=== PATIENT | male | born 1970 | race Caucasian/White ===

== ENCOUNTER 2023-12-30 15:55 | Emergency (ER) | payer OTHER, SELFPAY ==
[2023-12-30 16:02] VITALS: BP 147/87; PULSE 91; TEMP 36.7; O2SAT 98; BMI 43.8
--- NOTE | 2023-12-30 16:20 | ED.GENADUL1 ---
HPI HPI - General Adult General Chief complaint: Wound/Laceration Stated complaint: UPPER EXTREMITY INJURY-CUT FINGER Time Seen by Provider: 12/30/23 15:57 Source: patient Mode of arrival: walk-in Limitations: no limitations History of Present Illness HPI narrative: Patient is a 53-year-old male who presents to the emergency department for small laceration to the lateral aspect of the left fifth finger. He was using a kitchen knife when he accidentally cut himself. Tetanus is up-to-date and bleeding is well-controlled. He is right-hand dominant. No other associated injuries Related Data Allergies Allergy/AdvReac Type Severity Reaction Status Date / Time phenothrin Allergy Intermediate Verified 12/30/23 16:05 Opioid HPI Opioid Management Most Recent Opioid Data: No Data to Display Review of Systems ROS Constitutional Denies: fever or chills Ears, nose, mouth, and throat Denies: throat pain or nasal congestion Respiratory Denies: shortness of breath Gastrointestinal Denies: nausea or vomiting Musculoskeletal Reports: extremity pain; Denies: back pain or neck pain Integumentary/Breast Denies: rash Neurological Denies: headache Hematologic/Lymphatic Denies: easy bruising or easy bleeding Exam Narrative Exam Narrative: Gen.: Awake, alert, in no distress Head: Normocephalic, atraumatic ENT: Moist mucous membranes Respiratory: No respiratory distress Extremities: Normal flexion and extension of the DIP and PIP joints of the left fifth finger. Middle phalanx with a 1.5 cm laceration over the ulnar aspect of the digit. No active bleeding. No deep laceration or subcutaneous tissue exposure.No evidence of tendon deficit on exam Psych: Normal mood and affect Neuro: No focal neuro deficit Skin: Warm, dry Constitutional Vital Signs, click to edit/add: Last Vital Signs Temp 98.0 F 12/30/23 16:02 Pulse 91 H 12/30/23 16:02 Resp 18 12/30/23 16:02 BP 147/87 H 12/30/23 16:02 Pulse Ox 98 12/30/23 16:02 O2 Del Method Room Air 12/30/23 16:02 Course Vital Signs Vital signs: Vital Signs Temperature 98.0 F 12/30/23 16:02 Pulse Rate 91 H 12/30/23 16:02 Respiratory Rate 18 12/30/23 16:02 Blood Pressure 147/87 H 12/30/23 16:02 Pulse Oximetry 98 12/30/23 16:02 Oxygen Delivery Method Room Air 12/30/23 16:02 Temperature 98.0 F 12/30/23 16:02 Pulse Rate 91 H 12/30/23 16:02 Respiratory Rate 18 12/30/23 16:02 Blood Pressure 147/87 H 12/30/23 16:02 Pulse Oximetry 98 12/30/23 16:02 Oxygen Delivery Method Room Air 12/30/23 16:02 Medical Decision Making MDM Narrative Medical decision making narrative: Laceration repaired without difficulty. Please see procedure note for details. Follow-up with PCP in 7 to 10 days for suture removal and return to the ER if symptoms change or worsen Laceration repair: Done under sterile conditions. The use of Shur-Clens prep the area. Local injection with lidocaine 1% was used, approximately 2 cc. The wound was irrigated copiously with normal saline. The wound was explored there was no evidence of foreign material. The laceration was approximated with 3-0 nylon. 3 simple interrupted sutures were placed. Patient tolerated the procedure well. The patient was neurovascularly intact post. the patient had bacitracin applied to the laceration and a dry sterile dressing was place. The patient will need to follow-up in the next 7-10 days for removal SUPERVISED APC VISIT, PHYSICIAN ATTESTATION: Based on the medical record the care appears appropriate. ? Medical Records Medical records reviewed: Yes I reviewed the patient's medical records Discharge Plan Discharge Stand Alone Forms: Portal Instructions Chief Complaint: Wound/Laceration Clinical Impression: Finger laceration Patient Disposition: Home, Self-Care Time of Disposition Decision: 16:20 Condition: Good Print Language: [place] Instructions: Finger Laceration (ED) Additional Instructions: Sutures removed in 7-10 days with your doctor's office Referrals: Physician,Non-Staff, MD [Primary Care Provider] - 1 week
[2023-12-30] MEDS: BACITRACIN 0.9 GM PACKET 1 PACKET TOPICAL (16:43)
[2023-12-30] MEDS: LIDOCAINE HCL 1% 100 MG/10 ML MDV INJ (16:44)
== END 2023-12-30 16:39 | disposition home or self-care (01) ==
PROVIDERS: Emergency Provider Student in an Organized Health Care Education/Training Program; PCP Family Medicine
DX: S61.217A Laceration without foreign body of left little finger without damage to nail, initial encounter (principal); W26.0XXA Contact with knife, initial encounter
CPT/HCPCS: 12001; 99282

== ENCOUNTER 2024-09-02 13:04 | Outpatient (OUT) | payer OTHER, SELFPAY ==
--- NOTE | 2024-09-02 14:27 | P.CN_ITS ---
Consult Note: HPI Data of Consult Patient: new to practice Consult date: 09/02/24 Requesting Physician: Trupti Ponce MD Primary Care Provider: Amna Cobian DO Family Provider: ENOC Consult Narrative Reason for consult: neck pain, bilateral shoulder and arm pain Narrative: 54yom who presents for evaluation. notes longstanding neck and bilateral shoulder and upper extremity pain. shoulder xr with degeneration bilaterally, cervical xr with multilevel degenerative changes. has continued in frequent chiropractic therapy for >6 weeks, without lasting benefit. uses otc pain meds, as needed. cc:: CC: Trupti Ponce MD Review of Systems ROS Status of ROS 10 or more systems reviewed and unremark able except as noted in history and below Meds Home Medications and Allergies Allergies Allergy/AdvReac Type Severity Reaction Status Date / Time phenothrin Allergy Intermediate Verified 12/30/23 16:05 Exam Narrative Exam Narrative: Psych-alert and oriented x 3.? Attentive and appropriate, constitutionally normal, displays normal mood and affect per situation.? There are no obvious deficits in memory, reasoning, or intellect.? Skin-no obvious rashes, bruising, or erythema noted to the patient's area of pain.? Extremities-upper extremities are warm with minimal edema and palpable pulses. Cervical- tenderness to palpation noted in the cervical spine and paraspinal musculature.? Pain is elicited with flexion, extension, and lateral rotation of the cervical spine.? Range of motion is diminished due to pain. Facet loading maneuvers are positive. Strength-unremarkable and within normal limits Sensory-no notable sensory deficits in the bilateral upper extremities to touch or pinprick with the exception to decreased sensation to the bilateral C4, 5, 6 dermatomal distribution.? Coordination remains intact.? Gait remains non-antalgic. Assessment and Plan Assessment and Plan (1) Cervical stenosis of spine: (2) Osteoarthritis of shoulders, bilateral: Qualifiers: Osteoarthritis type: primary Qualified Code(s): M19.011 - Primary osteoarthritis, right shoulder; M19.012 - Primary osteoarthritis, left shoulder Plan 54yom who presents for evaluation. failed conservative measures, as noted. imaging reviewed, as noted. given symptoms and imaging, would like to get cervical mri without contrast, as well as updated bilateral shoulder xr. he is in agreement. meds reviewed, uds obtained. trial t#3 bid prn. follow up after imaging.
== END 2024-09-02 13:05 | disposition home or self-care (01) ==
PROVIDERS: PCP Family Medicine; Visit Provider Anesthesiology
DX: M48.02 Spinal stenosis, cervical region (principal); M19.011 Primary osteoarthritis, right shoulder; M19.012 Primary osteoarthritis, left shoulder
CPT/HCPCS: G0463

== ENCOUNTER 2024-09-04 15:50 | Outpatient (OUT) | payer OTHER, SELFPAY ==
--- NOTE | 2024-09-04 | XR_ITS ---
The [address] [address] Patient Name: JOSÉ MIGUEL KAERS MRN: [id number] date: 1970 Sex: M Assigned Patient Location: [facility] Current Patient Location: MRI Accession/Order Number: [id number] Exam Date: 09/05/2024 11:27 Report Date: 09/05/2024 11:28 At the request of: NANCY LUA MD Procedure: XR shoulder JUDIE min 2V Bilateral shoulder series 3 views each Reason for exam: Bilateral shoulder pain. COMPARISON: None. FINDINGS: Right shoulder demonstrates mild degenerative changes of the AC and glenohumeral joints without acute bony process. A similar process is noted involving the left shoulder without acute bony process. XR/XR shoulder JUDIE min 2V IMPRESSION: Mild degenerative changes of the shoulders without acute bony process. Impression dictated by: Gordon Salgado Jr., D.O.09/05/2024 11:28 AM Dictation Location: [employer] Electronically authenticated by: [id number] Y Date: 09/05/2024 11:28
== END 2024-09-04 15:51 | disposition home or self-care (01) ==
LOC: RAD 15:50
PROVIDERS: PCP Family Medicine; Visit Provider Anesthesiology
DX: M25.511 Pain in right shoulder (principal); M25.512 Pain in left shoulder
CPT/HCPCS: 73030

== ENCOUNTER 2024-09-17 15:41 | Outpatient (OUT) | payer OTHER, SELFPAY ==
--- NOTE | 2024-09-17 15:45 | MR_ITS ---
[address] [address] Patient Name: JOSÉ MIGUEL AKERS MRN: [id number] date: 1970 Sex: M Assigned Patient Location: MRI Current Patient Location: MRI Accession/Order Number: [id number] Exam Date: 09/17/2024 22:29 Report Date: 09/17/2024 22:38 At the request of: NANCY LUA MD Procedure: MR cervical spine wo con EXAMINATION: MRI C-SPINE WITHOUT IV CONTRAST CLINICAL HISTORY: Cervical pain radiating into left arm. COMPARISON: None TECHNIQUE: Multiecho imaging was performed in the sagittal and axial planes without contrast administration. FINDINGS: Vertebral body heights appear maintained. No bone marrow edema is present. No prevertebral soft tissue swelling. Cervical medullary junction appears normal. No abnormal cord signal is seen. No paraspinal mass. At C2-3: Disc osteophyte complex eccentric towards the left causing mild canal stenosis and left-sided neural foraminal stenosis. At C3-4: Disc osteophyte complex is present eccentric towards the right causing mild canal stenosis. No significant neural foraminal stenosis. At C4-5: Central disc osteophyte complex present causing moderate canal and severe left-sided neural foraminal stenosis. At C5-6: Central disc osteophyte complex present causing moderate canal and severe bilateral neural foraminal stenosis. At C6-7: Disc osteophyte complex present causing mild canal and right-sided neural foraminal stenosis. At C7-T1: No posterior disc pathology. No neural canal or foraminal stenosis. MR/MR cervical spine wo con IMPRESSION: Multilevel degenerative disc disease as described above, worst at C5-6 causing moderate canal and severe bilateral neural foraminal stenosis. Impression dictated by: Gordon Salgado Jr., D.O.09/17/2024 10:38 PM Dictation Location: [place] [address] Electronically authenticated by: [id number] Y Date: 09/17/2024 22:38
== END 2024-09-17 15:42 | disposition home or self-care (01) ==
LOC: MRI 15:41
PROVIDERS: PCP Family Medicine; Visit Provider Anesthesiology
DX: M48.02 Spinal stenosis, cervical region (principal); M50.30 Other cervical disc degeneration, unspecified cervical region
CPT/HCPCS: 72141

== ENCOUNTER 2025-06-28 09:38 | Outpatient (OUT) | payer OTHER, SELFPAY ==
--- OUTSIDE RECORDS SUMMARY | 2025-06-23 10:36 | XMS_ITS | Continuity of Care Document ---
Author Organization [facility] Address [address] [place] [address] Phone Care Team Providers Care Tar Man Name Role Phone Amna Cobian DO Primary Care Provider Amna Cobian DO Attending Provider [phone] Care Teams Patient Care Team Team Status: Active Member Role/Relationship Status Dates Amna Cobian DO Primary Care Provider Active Visit Care Team Team Status: Inactive Member Role/Relationship Status Dates Amna Cobian DO Primary Care Provider Active Start: March 27, 2025 End: March 27, 2025Amna Cobian DOAttending ProviderActiveStart: March 27, 2025 End: March 27, 2025 Visit Care Team Team Status: Inactive Member Role/Relationship Status Dates Amna Cobian DO Primary Care Provider Active Start: April 28, 2025 End: April 28, 2025Amna Cobian DOAttending ProviderActiveStart: April 28, 2025 End: April 28, 2025 Visit Care Team Team Status: Inactive Member Role/Relationship Status Dates Amna Cobian DO Primary Care Provider Active Start: June 02, 2025 End: June 02, 2025Amna Cobian DOAttending ProviderActiveStart: June 02, 2025 End: June 02, 2025 Visit Care Team Team Status: Inactive Member Role/Relationship Status Dates Amna Cobian DO Primary Care Provider Active Start: June 02, 2025 End: June 02, 2025Amna Cobian DOAttending ProviderActiveStart: June 02, 2025 End: June 02, 2025 Patient Care Team Team Status: Inactive Member Role/Relationship Status Dates Amna Cobian DO Primary Care Provider Active Start: June 23, 2025 End: June 23, 2025Amna Cobian DOAttending ProviderActiveStart: June 23, 2025 End: June 23, 2025 Chief Complaint and Reason for Visit Chief Complaint Admit Date 1 month follow up March 27, 2025 2:59pm 1 month follow up April 28, 2025 2 :46pm leg swelling June 02, 2025 3:03pm r60.0 m79.661 m79.662 June 02 4:17pm 3 WK F/U LE edema , BP June 23 2:42pm Reason for Visit Admit Date Major depressive disorder with current a ctive episode March 27, 2025 2:59pm Major depressive disorder with current a ctive episode April 28, 2025 2:46pm Bilateral lower extremity edema June 02, 2025 3:03pm Bilateral lower extremity edema June 23, 2025 2:42pm Allergies, Adverse Reactions, Alerts Allergen Type Severity Reaction Last Updated Verified Status phenylephrine Allergy Unknown swollen prostate Decem 2024 2:58pm Yes Active Social History Smoking Status Status Start Date End Date Date of Observa tion Ex-smoker (finding) October 10, 2024 4:32pm Observation Status Observation Response Date of Response Legal Sex Male (finding) Sex Assigned At BirthMaleDecember 1969 Family History Relationship Condition Age at Onset Recorded Date/T venkatesh aunt Obesity Unknown fatherHeart diseaseUnknownDeceasedUnknownMalignant neoplasmUnknowngrandparent DeceasedUnknownObesityUnknownDiabetes mellitusUnknowngrandparentFamily history of mental disorderUnknownDeceasedUnknowngrandparentObesityUnknownmotherDeceased UnknownMalignant neoplasmUnknownmotherMalignant neoplasmUnknown Problems Active Problems Problem Diagnosis/Recorded Date Onset Date Stat BPH (benign prostatic hyperplasia) September 19, 2023 6:4 6pm Unknown Active Bilateral lower extremity edema June 02, 2025 3: 48pm Unknown Active Insomnia September 19, 2023 6:46pm Unknown Activ e Generalized anxiety disorder September 19, 2023 6:46pm Un known Active Osteoarthritis of shoulders, bilateral January 03, 2024 1:13pm Unknown Active Cervical spinal stenosis October 10, 2024 3:32pm Unkno wn Active Erectile dysfunction February 07, 2024 2:34pm Unknown Active Arthritis of left acromiocla vicular joint December 04, 2023 10:03am Unknown Active Mixed hyperlipidemia February 06, 2024 2:55pm Unknown Active Well adult exam October 10, 2024 2:53pm Unknown A ctive Major depressive disorder wi th current active episode March 27, 2025 2:32pm Unknown Active BMI 40.0-44.9, adult September 19, 2023 6:46pm Unknown Active Prediabetes December 06, 2023 2:44pm Unknown Active Lumbar back pain November 11, 2022 3:36pm Unknown Active Bilateral knee pain December 04, 2023 10:03am Unknown Active Neck pain January 03, 2024 12:55pm Unknown Acti ve Severe obesity (BMI >= 40) December 04, 2023 9:58am Unkno wn Active Abdominal pain November 02, 2022 5:27pm Unknown Ac tive Hypertension November 11, 2022 3:36pm Unknown Acti ve Bursitis of shoulder, left December 04, 2023 10:11am Unkn own Active Abdominal wall strain November 02, 2022 5:27pm Unknown Active Chronic depression September 19, 2023 6:46pm Unknown Active Inactive/Resolved Problems Problem Diagnosis/Recorded Date Onset Date Stat us Difficulty urinating June 05, 2023 11:04am Unkno wn Resolved Medications Medication Status Dose Units Route Directions Qty Days Refills S tart Date Stop Date End Date Reason(s) Instructions Adherence Meloxicam 15 mg tablet Discontinued 0 .ROUTE.JKUUFCY586Uwoqr 2023 6:55amMay 2023 3:10pmTAKE 1 TABLET BY MOUTH ONCE DAILYLosartan 50 mg hkakriRxskfcuuwutf20BOWWCzury50620Gbb 2023 11:00pmDecember 2023 10:25amHypertension Essential (primary) hypertensionSemaglutide (Ozempic) 2 mg/dose (8 mg/3 mL) pen kgkjxxbfDgiwyakuzniz3EPBHYHKYlrpia vyyy2872Hlfqne 2023 8:48amSeptember 2023 4:01pmPrediabetes PrediabetesHe will take 36 clicks for 3 weeks and if no significant side effects he will go to the 2 mg dose.Amlodipine 10 mg tabletDiscontinued0.ROUTE.NOERQYM03 2023 6:36amDecember 2023 1:41pmHypertension Essential (primary) hypertensionTAKE 1 TABLET BY MOUTH ONCE DAILYSertraline 100 mg cieiqlQrqnccfkkqha217FFYKFjlexXipowbr 23rd, 2024 11:00pmNovember 2023 4:07pmSemaglutide (Ozempic) 2 mg/dose (8 mg/3 mL) pen hzbyokkuYapskaikkmrd6WL SUBCUTevery 2023 10:37amDecember 2023 3:42pm Prediabetes PrediabetesSertraline 100 mg ptrhjhEtuhrhyiejea152WRVJCnhyx4944Psdtoojy 26th, 2024 4:07pmFebruary 2024 8:49amChronic depression Depression, unspecifiedLosartan 50 mg nlkuyeXxmafoenkkdn80RWFWLdqzf42493Zloyuvsb 2023 10:25amOctober 2024 12:12pmHypertension Essential (primary) hypertensionCelecoxib 200 mg mnzegxyRwamrlqvhtxx034IZVKWyeob dfecm857760Iyzhiveo 23rd, 2024 1:41pmJuly 2024 12:05pmOsteoarthritis of both shoulders Primary osteoarthritis, right shoulder Primary osteoarthritis, left shoulderAmlodipine 10 mg tabletDiscontinued0.ROUTE .BDRWFCN120XbmgwaylJuly 08, 2024 1:41pmJuly 2024 9:03amHypertension Essential (primary) hypertensionTAKE 1 TABLET BY MOUTH ONCE DAILYSemaglutide (Ozempic) 2 mg/dose (8 mg/3 mL) pen yewbrfxpEqzdnlxzvnip1HMGAAGXYivwqo hyja0547 July 18, 2024 3:54pmJanuary 2024 7:33amPrediabetes PrediabetesTamsulosin 0.4 mg capsuleDiscontinued0.ROUTE.CYZLWKJ920Edwhzxg 27th, 2025 3:44pmFebruary 2024 1:44pmTAKE 1 CAPSULE BY MOUTH ONCE DAILY 30 MINUTES AFTER THE same meal each DAYSemaglutide (Ozempic) 2 mg/dose (8 mg/3 mL) pen aawriwdrWihqouqlwnjm5MTOXECRVzihfi cqgy5858AuxjpkjAugust 13, 2024 7:33amMarch 2024 2:36pmPrediabetes PrediabetesTamsulosin 0.4 mg capsuleActive0.ROUTE.NMKOCMT117Ynidqtxk2024 1:44pmTAKE 1 CAPSULE BY MOUTH ONCE DAILY 30 MINUTES AFTER THE same meal each DAY Complies with drug therapyAtorvastatin 20 mg tabletActive0.ROUTE.TCFIWCK759 August 30, 2024 8:23amTAKE 1 TABLET BY MOUTH ONCE DAILYComplies with drug therapySertraline 100 mg prvqwzUfqhlztxjild668DWXTQrvgt2166Psohatki 2024 8:49amAugust 2024 1:00pmChronic depression Depression, unspecifiedTrazodone 150 mg tabletActive0.ROUTE.PNQHCUJ147Ielau 2024 10:27amTAKE 1 TABLET BY MOUTH AT BEDTIMEComplies with drug therapy Cariprazine (Vraylar) 1.5 mg capsuleDiscontinued1.2KRIJBwvii463Fpoi 2024 11:00pmJuly 2024 2:33pmChronic depression Depression, unspecifiedAripiprazole 5 mg dzbpawMnsztskoetal7ZQYQFprqs at bedtime 301July 2024 11:00pmAugust 2024 2:27pmChronic depression Depression, unspecifiedAmlodipine 10 mg tabletDiscontinued0.ROUTE.WGFFOQS511Urfs2024 9:03amNovember 2024 4:01pmHypertension Essential (primary) hypertensionTAKE 1 TABLET BY MOUTH ONCE DAILYCelecoxib 200 mg vjkdrzmUzfxwt131ZHJBEhwdt pwglj807599Dwvi 2024 12:05pmOsteoarthritis of both shoulders Primary osteoarthritis, right shoulder Primary osteoarthritis, left shoulderComplies with drug therapySertraline 100 mg tabletActive0.ROUTE.SURAHXM4077Vbejcg2024 1:00pmChronic depression Depression, unspecifiedTAKE 2 TABLETS BY MOUTH ONCE DAILYComplies with drug therapyLosartan-Hydrochlorothiazide 50-12.5 mg xyuqgdQjtsnk8XMXBZHadmi615Chuchdj 2024 11:00pmHypertension Essential (primary) hypertensionComplies with drug therapyCyclobenzaprine 10 mg dueywsWvqlqjuessqi93GWMENhukr times daily as needed for Muscle Aiigh290Vocsr 2022 11:00pmMarch 2023 2:31pmIbuprofen 800 mg ctuakzRzriuxmpotjx220 MGPOThree times daily as needed for Rqwp139Fqzks 2022 11:00pmApril 2023 2:52pmTamsulosin (Flomax) 0.4 mg capsuleDiscontinued0.7ZZNCWldhl723Yzogjbtx 2022 12:00amJanuary 2024 3:44pmNaproxen (Naprosyn) 500 mg tablet Ashdgisbglex555FIDAIhonj kqnmt766Kshgh 2022 11:00pmApril 2023 2:54pm Prednisone 20 mg awdxilMtobhrspqmby11YAONLsfyi911Yabtj 2022 11:00pmMarch 2023 2:32pmadminister with food or milkTrazodone 150 mg tabletDiscontinued 150MGPODaily at bedtimeMay 2023 11:00pmMarch 2024 10:27amAtorvastatin 20 mg snplalMwmnztdcaaji21XOWNFtlmdOtz 2023 11:00pmFebruary 2024 8:24amSemaglutide (Ozempic) 0.25 mg or 0.5 mg (2 mg/3 mL) pen injector Discontinued0.25MGSUBCUTevery ywiw4172Fxt 2023 11:00pmJuly 2023 2:58pm0.25 mg once weekly for 4 weeks followed by 0.5 mg once weekly for 4 weeks Semaglutide (Ozempic) 2 mg/dose (8 mg/3 mL) pen rkrgtqigKlluzllsavhf9NTCQNSHQ every nirr4924Ucpx 2023 11:00pmAugust 2023 8:48amPrediabetes PrediabetesHe will take 36 clicks for 3 weeks and if no significant side effects he will go to the 2 mg dose.Semaglutide (Ozempic) 2 mg/dose (8 mg/3 mL) pen anzvrxvfRlbapzxnjlzi0PARVBUCGhnlqc rzxl5689Fwzqwbbl 2023 3:41pmJanuary 2024 3:54pmPrediabetes PrediabetesAmlodipine 5 mg bwubzbDhhhzafnzbtc5PKBHCniyuJnlufbue 2024 12:00amDecember 2024 3:23pmFurosemide 20 mg pxrqkyOdwtlq39GNLDPjoum as needed for zasyz877Hgjbybyn 2024 12:00amEdema of both lower extremities Localized edemaComplies with drug therapyIbuprofen 200 mg evmsfuAjiczspjomjl862 MGPODailyApril 2023 11:00pmMay 2023 3:10pmQuetiapine (Seroquel Xr) 50 mg tablet extended release 24 ynUysmhoviumvi96GVKMLsvza at bumsdxc227Wtdnv 2023 11:00pmSeptember 2023 6:48amInsomnia Insomnia, unspecifiedAmlodipine 10 mg dgubaiAcyrcwopzbzm12NDBIBimkj585Gnxyv 2023 11:00pmOctober 2023 6:36amHypertension Essential (primary) hypertensionLosartan 100 mg mtczajSuisldgkpagq723JIQEUumsp24 arch 2023 11:00pmApril 2023 3:17pmHypertension Essential (primary) hypertensionBupropion Hcl 150 mg tablet extended release 24 aoTydedqdfrhbb308DJKZWcoxi opizd0951Fferk 2023 3:36pmApril 2023 2:52pmBody mass index (BMI) of 40.0 to 44.9 in adult Body mass index [BMI] 40.0-44.9, adultBupropion Hcl 150 mg tablet extended release 24 jbZeedombeirqq015RBAHGijlqMrntm 2023 12:00amMarch 2023 3:39pmTrazodone 150 mg ezakzxOqfsyqggntoc577AZAMWqtps at bedtimeReg[facility] 2023 12:00amApril 2023 3:16pmSertraline 100 mg jfyssjYfkwbdcwfhri214PHRRKgwhc September 19, 2023 12:00amOctober 2023 7:35amNaltrexone 50 mg tablet Vxaptowryruk52NODVTawgxVkmso 2023 12:00amMarch 2023 8:45amMeloxicam 15 mg stueauKvxxsjxkviup51GJRBOrrfyHvuwb 2023 12:00amApril 2023 6:55am Losartan 50 mg njstatJvdxiocnjijg99PFSTKvkdiRtfaz 2023 12:00amMarch 2023 3:36pmAmitriptyline 25 mg pdthngBmdxgrrxctnh02GUHFSbnyu at bedtimeRegional Medical Center 2023 12:00amApril 2023 3:16pmNaltrexone 50 mg sqfxiwTjxngryhtoxt96NW SQYcpwr385Ooctg 2023 8:44amApril 2023 2:54pmBody mass index (BMI) of 40.0 to 44.9 in adult Body mass index [BMI] 40.0-44.9, adultCelecoxib 200 mg ttllascUlkgxfhweskl907PA POTwice lzzsz818969Aarfctzog 18th, 2024 7:05amDecember 2023 1:41pm Osteoarthritis of both shoulders Primary osteoarthritis, right shoulder Primary osteoarthritis, left shoulderCelecoxib 200 mg uerssloHwsaffeuzteh381GXGH Twice qpkxr64948YkvDecember 03, 2023 11:00pmpt2023 7:06am Methylprednisolone (Medrol (Nabil)) 4 mg tablets,dose otjxSmhayjppiogf4JQOJfo wnnhlwcg91LufDecember 03, 2023 11:00pmJuly 2023 2:08pmSemaglutide (Ozempic) 2 mg/dose (8 mg/3 mL) pen cojspkaaXjwxhtfnriss6ZJBUEXYQtvqer kgvc6554Qzynspvkr2023 4:01pmOctober 2023 9:28amPrediabetes PrediabetesSemaglutide (Ozempic) 2 mg/dose (8 mg/3 mL) pen injectorDiscontinued2 MGSUBCUTevery knim7804Yixxvmu 28th, 2024 9:28amNovember 2023 10:37am Prediabetes PrediabetesBupropion Hcl 150 mg tablet extended release 24 eiBveutmanaocz875RXFP Every vjpcbzl507Womcng 2024 11:00pmSept2024 2:31pmChronic depression Depression, unspecifiedAripiprazole 5 mg bpxhpmIrursebjhcjg7MMVUUelpd at bedtime 901Augu2024 2:27pmSept2024 2:31pmChronic depression Depression, unspecifiedCariprazine (Vraylar) 1.5 mg capsuleDiscontinued1.5MGPO Pesby634Xtseztrhc2024 11:00pmOctober 2024 2:42pmMajor depressive disorder with current active episode Major depressive disorder, single episode, unspecifiedCariprazine (Vraylar) 1.5 mg capsuleActive1.5AXNWKnobz944Debxwgh 2024 2:42pmMajor depressive disorder with current active episode Major depressive disorder, single episode, unspecifiedComplies with drug therapy Immunizations Immunization Event Date Not Given Reason Dose Number Parts Counterman Lot Number Reason(s) Given Vaccine Information Statement (VIS) Detail Administration Location COVID-19 mRNA, Comirangela (EnzySurge) October 09 COVID-19 mRNA, Comirnaty (EnzySurge)October 30OVID mRNA, Comirnatty (EnzySurge)October 09OVID19 mRNA, Edsbyirnatty (EnzySurge)October 30, 2020 Influenza vaccine, quadrivalent, adjuvantedNovember atient Refused Influenza, seasonal, injectable, pfSeptember [id number] [facility]eryInflu[facility], seasonal, injectable, pfSeptember [id number] [facility] [place] Vaccine Recombinant, AdjuvantedJanuary 2023Zoster Vaccine Recombinant, AdjuvantedJanuary 2023Zoster Vaccine Recombinant, AdjuvantedApril [id number] [facility] [place]Tetanus, Diphtheria adult, 5 Lf pres free absAugust 2010Tetanus, Diphtheria adult, 5 Lf pres free absAugust 2010Tetanus, Diphtheria, Pertussis (Tdap)August 07, 2023Tetanus, Diphtheria, Pertussis (Tdap)August 07, 2023 Procedures Procedure Date Performed Status US venous duplex LE BI June 02, 2025 4:32p m completed Relevant Diagnostic Tests and/or Laboratory Data Diagnostic Imaging Reports Author Micky Borja [facility] ColumbusAuthoredNovbullhead community hospital 2024 10:10amReport Dictated Date/TimeDictated ByStatusRadiology ReportNov2024 10:10am Micky Borja [facility] [address] [place] [address] Ultrasound Report Signed Patient: Dagoberto Pittman MR#: [id number] : 1970 Acct:[id number] Age/Sex: 54 / M ADM Date: 5 Loc: Room: Type: [facility] Attending Dr: Amna Cobian DO Ordering Provider: Amna Cobian DO Date of Service: 06/02/25 US/US venous duplex LE BI: R60.0 - Localized edema Copies to: Amna Cobian DO~ BILATERAL LOWER EXTREMITY VENOUS DUPLEX INDICATION: Swollen painful legs PROCEDURE: Color-flow duplex scanning is used to interrogate the deep venous system of the right and left lower extremities. The common femoral vein, femoral vein and popliteal vein show good compressibility with normal proximal and distal augmentation. The posterior tibial and peroneal veins are poorly v isualized. US/US venous duplex LE BI IMPRESSION: NO EVIDENCE FOR DEEP VEIN THROMBOSIS OR PROXIMAL SUPERFICIAL THROMBOPHLEBITIS IN THE RIGHT OR LEFT LOWER EXTREMITY. Impression dictated by: Micky Borja M.D. 06/03/2025 10:11 AM Dictation Location: [place] [address] Tech: Reny Cohen Transcribed By: THERESE 06/03/25 1011 Dictated By: Micky Borja MD 06/03/25 1010 Signed By: <Electronically signed by MD Micky Borja in OV> 06/03/25 1011 Vital Signs Vital Reading Result Reference Range Collection Date/Time Height 70 [in_i] March 27, 2025 2:29qiPujsrj865.33 kgSeptember 2024 2:11pmHeart Rate 94 /oev73-346Hesyrmubm 2024 2:11pmRespiratory rate18 /tkw18-34Zabndjlpp 2024 2:11pmOxygen saturation by Pulse dpeconyp47 %95-100September 2024 2:11pmBP Stuycmgy891 mm[Hg]100-140September 2024 2:11pmBP Cotyndcbz65 mm[Hg]60-100September 2024 2:11pmBMI (Body Mass Index)45.3 kg/e5Mzjvrclvj 2024 2:41ypNincig57 [in_i]April 28, 2025 2:66jxZgcpil660.96 kgOctsaint elizabeth edgewood 2024 2:19pmHeart Rate77 /sbi98-590Nscoxxx 2024 2:19pmOxygen saturation by Pulse oldfowra15 %95-100Octsaint elizabeth [facility] 2024 2:19pmBP Ejdzitbj114 mm[Hg]100-140Octsaint elizabeth [facility] 2024 2:19pmBP Twgvhssnl17 mm[Hg]60-100Octsaint elizabeth [facility] 2024 2:19pmBMI (Body Mass Index)46.5 kg/b1Apnhyer 2024 2:19ppMavjls35 [in_i]June 02, 2025 3:33ebKfilus893.13 kgM[facility] 2024 3:30pmHeart Rate83 /gtq38-515Vavhtoqs 2024 3:30pmRespiratory rate18 /fuu31-06Vwsxddpo 2024 3:30pmOxygen saturation by Pulse xbiezoch36 %95-100Novbullhead community hospital 2024 3:30pmBP Zqwqezsr543 mm[Hg]100-140Novbullhead community hospital 2024 3:30pmBP Errlrfgvz14 mm[Hg]60-100November 2024 3:30pmBMI (Body Mass Index)47.5 kg/l4Woujxvzz 2024 3:98xqFcwnls24 [in_i]June 23, 2025 2:67bvTljmid096.68 kgDeceer 2024 2:59pmHeart Rate83 /urp89-161Zlhwnmzi 2024 2:59pmRespiratory rate18 /vqw24-72Lydjmlta 2024 2:59pmOxygen saturation by Pulse xwmzibnf38 % 95-100Deceer 2024 2:59pmBP Kbnljzrj789 mm[Hg]100-140Decereunion rehabilitation hospital [facility] 2024 2:59pmBP Gsjhzfllk21 mm[Hg]60-100December 2024 2:59pmBMI (Body Mass Index) 47.3 kg/l7Nrmzrwxl 2024 2:59pm Advance Directives Advance Directive Response Recorded Date/ Time Advance Directives No February 06 10:45am Insurance Providers Guarantor Dagoberto Pittman Address [address] [facility] [address]Tbfqcag Info.Home Phone: Payer Group Member ID Coverage Type Subscriber Relationship to Subscriber Effective Date Expiration Date MMO Id: [id number] Jennings , D Id: [id number] [address] [facility] [address] Home Phone: Email: [email or web address] Encounter Location(s) Arrival/Admit Date Discharge/Departure Date Discharge/Departure Disposition Provider(s) Departed Physician/ Provider Office Visit -[facility] March 27, 2025 2:59pm March 27, 2025 3:38pm Discharged to home care or self care (routine discharge) Amna Cobian DO Departed Physician/ Provider Office Visit -[facility] April 28, 2025 2:46pm April 28, 2025 3:42pm Discharged to home care or self care (routine discharge) Amna Cobian DO Departed Physician/ Provider Office Visit -[facility] June 02, 2025 3:03pm June 02, 2025 4:02pm Discharged to home care or self care (routine discharge) Amna Cobian DO Departed Clinical -Ultrasound [facility] June 02, 2025 4:17pm June 02, 2025 4:18pm Discharged to home care or self care (routine discharge) Amna Cobian DO Departed Physician/ Provider Office Visit -[facility] [place] June 23, 2025 2:42pm June 23, 2025 3:35pm Discharged to home care or self care (routine discharge) Amna Cobian DO Recent Diagnosis Onset Date Admit Date Major depressive disorder wi th current active episode Unknown March 27, 2025 2:59pm Major depressive disorder wi th current active episode Unknown April 28, 2025 2:46pm Bilateral lower extremity edema Unknown June 02, 2025 3:03pm Bilateral lower extremity edema Unknown June 23, 2025 2:42pm Assessments Diagnosis Onset Date Resolution Status Admit Date Major depressive disorder with current a ctive episode acuteSept2024 2:59pmMajor depressive disorder with current active episodeacuteOct2024 2:46pmBilateral lower extremity edemaacute June 02, 2025 3:03pmBilateral lower extremity edemaacuteDecemb2024 2:42pm Plan of Treatment Author Amna Cobian [facility] 2024 4:16pmNew onset bilateral LE edema x 1 month. Discussed differential including DVT, medication side effect, cardiac etiology, renal etiology. Recommend STAT venous duplex to rule out DVT, he was sent [place] [facility] [place]. Plan to decrease dosage of amlodipine to 5 mg daily Will start Lasix 20 mg daily PRN, advised to take for 2-3 days then monitor symptoms. We will f/u in 3 weeks for recheck. He has an order for lab work including renal function. No evidence of fluid overload of lungs based on clinical history and exam. Can consider echocardiogram/BNP if symptoms not improving. Patient in agreement with plan. Author Amna Cobian [facility] 2024 3:40pmDepression uncontrolled on current dose of sertraline, Abilify and Wellbutrin XL. At this point has failed above meds due to ineffectiveness. Will discontinue Wellbutrin as this may be contributing to sleep issues. Will discontinue Abilify and trial switching to Vraylar 1.5 mg daily. Discussed possible side effects of medication. Will f/u in one month for recheck. If Vraylar not covered by insurance can consider increasing abilify Author Amna Cobian [facility] ColumbusAuthoredOctober 2024 2:42pmImprovement of depression symptoms with use of Vraylar, will continue Having some change in sleep quality since starting medication. He has been taking med in PM, advised to try taking in AM. Will f/u if no improvement or worsening symptoms. He has been recommended a sleep study but has declined due to cost unfortunately Future Tests Future scheduled test information is unavailable Pending Tests Pending diagnostic test information is unavailable Future Visits Future appointment information is unavailable Future Procedures Procedure Name Ordered Date Scheduled Date B-Type Natriuretic Peptide June 23, 2025 3: 23pm TestosteroneSeptember 2024 2:25pm Future Medications Future medication information is unavailable Patient Instructions Patient instructions are unavailable
--- OUTSIDE RECORDS SUMMARY | 2025-06-28 09:43 | XMS_ITS | Clinical Summary ---
Author Organization [facility] Address [address] [place] [address] Phone Care Team Providers Care Sensor Operator Name Role Phone Unavailable Primary Care Provider Unavailabl e Social History Tobacco UseTypesPacks/DayYears UsedDateSmoking Tobacco: Never AssessedSex and Gender InformationValueDate RecordedSex Assigned at BirthNot on fileLegal Sex Male12/23/2019 8:16 AM CDTGender IdentityNot on fileSexual OrientationNot on file Plan of Treatment Health MaintenanceDue DateLast DoneCommentsLipid Disorders Cmnymoxyo1970 DTaP,Tdap,and Td Vaccines (1 - Tdap)1990Hepatitis B Vaccines (1 of 3 - 19+ 3-dose series)1990Pneumococcal Vaccine 50+ Years (1 of 1 - PCV)2021 Zoster Vaccines (1 of 2)2021OVID-19 Vaccine (1 - season) 2025Influenza Vaccine (#1)2025HIB VaccinesAged OutNo longer eligible based on patient's age to complete this topicHepatitis A VaccinesAged OutNo longer eligible based on patient's age to complete this topicMeningococcal B VaccineAged OutNo longer eligible based on patient's age to complete this topic Meningococcal VaccineAged OutNo longer eligible based on patient's age to complete this topic
--- OUTSIDE RECORDS SUMMARY | 2025-06-28 09:43 | XMS_ITS | Clinical Summary ---
Author Organization [facility] 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 Role Phone Pernell Param Polanco DO Primary Care Provider [phone] Allergies No known active allergies Medications MedicationSigDispense QuantityRefillsLast FilledStart DateEnd DateStatus acetaminophen (TYLENOL) 500 MG tablet Take 1 tablet by mouth every 6 hours as needed for Pain 1 tablet BIDActive traZODone (DESYREL) 150 MG tablet Indications:Adjustment insomnia,Reactive depressionTake 1 tablet by mouth nightly 90 tablet ctive losartan (COZAAR) 25 MG tablet Indications:Primary hypertensionTake 1 tablet by mouth daily 90 tablet ctive naltrexone (DEPADE) 50 MG tablet Indications:Class 3 severe obesity due to excess calories without serious comorbidity with body mass index (BMI) of 40.0 to 44.9 in adult ([facility])Take 1 tablet by mouth daily 30 tablet ctive buPROPion (WELLBUTRIN XL) 150 MG extended release tablet Indications:Class 3 severe obesity due to excess calories without serious comorbidity with body mass index (BMI) of 40.0 to 44.9 in adult (HCC)Take 1 tablet by mouth every morning 30 tablet ctive sertraline (ZOLOFT) 100 MG tablet Indications:Reactive depression,Adjustment insomniaTake 1 tablet by mouth daily 90 tablet ctive meloxicam (MOBIC) 15 MG tablet Indications:Bilateral chronic knee painTAKE 1 TABLET BY MOUTH EVERY MORNING 90 tablet ctive Active Problems ProblemNoted DateDiagnosed DateInsulin rwgfrgsruu64/06/2022 Overview (10/20/2021): A1c is 6.0% on 05/2021 Class 3 severe obesity due to excess calories without serious comorbidity with body mass index (BMI) of 40.0 to 44.9 in adult2Reactive depression 06/18/2021djustment /03/2021ilateral chronic knee pain06/09/2021 Cigarette nicotine dependence in /24/2021 Overview (06/09/2021): Smoked 1PPD for 35 years, quit cold turkey in 08/2020 Primary lullpmwqzkns62/01/2017 Resolved Problems ProblemNoted DateDiagnosed DateResolved DateTension hjrekqzu15/ Instability of knee jointprain of medial collateral ligament of kneeislocation, kneeain in joint, lower leg Family History Medical HistoryRelationNameCommentsAlzheimer's DiseaseMaternal Grandfather Alzheimer's DiseaseMaternal GrandmotherCancerMaternal GrandmotherDiabetes Maternal GrandmotherCancerMothermultple myelomaThyroid DiseaseMotherHeart DiseasePaternal GrandfatherLiver DiseasePaternal GrandfatherDiabetesPaternal GrandmotherHeart DiseasePaternal GrandmotherRelationNameStatusCommentsMaternal GrandfatherMaternal GrandmotherMotherDeceasedPaternal GrandfatherPaternal Grandmother Social History Tobacco UseTypesPacks/DayYears UsedDateSmoking Tobacco: PsmdukOqzzjnyxml624 08/17/1985 - 08/17/2020mokeless Tobacco: Never Tobacco Cessation:Counseling Given: Not Answered Alcohol UseStandard Drinks/WeekCommentsNo0 (1 standard drink = 0.6 oz pure alcohol)Overall Financial Resource Strain (CARDIA)AnswerDate RecordedHow hard is it for you to pay for the very basics like food, housing, medical care, and heating?Not hard at all3PHQ-2AnswerDate RecordedPHQ-9 Total Score1 08/04/2022Hunger Vital SignAnswerDate RecordedWithin the past 12 months, you worried that your food would run out before you got the money to buymore.Never true08/04/2022Within the past 12 months, the food you bought just didn't last and you didn't have money to get more.Never true08/04/2022Food InsecurityAnswer Date RecordedWithin the past 12 months, you worried that your food would run out before you got the money to buymore.Within the past 12 months, the food you bought just didn't last and you didn't have money to get more.1 08/04/2022Sex and Gender InformationValueDate RecordedSex Assigned at BirthNot on fileLegal KtoCfsg4808/26/2012 8:37 PM ESTGender IdentityNot on fileSexual OrientationNot on file Last Filed Vital Signs Vital SignReadingTime TakenCommentsBlood Ycvztavb611/8408/04/2022 7:07 AM EST Djvow512308/04/2022 7:07 AM XOEPbynbjztoky09.8 ??C (98.3 ??F)06/03/2021 9:49 AM ESTRespiratory Iqca648208/04/2022 7:07 AM ESTOxygen Eepeckpcry29%08/04/2022 7:07 AM ESTInhaled Oxygen Concentration--Kqusrc155 kg (280 lb)11/15/2022 2:32 PM EDT Ttygsy400.8 cm (5' 10 )11/15/2022 2:32 PM EDTBody Mass Index40.18011/15/2022 2:32 PM EDT Plan of Treatment Health MaintenanceDue DateLast DoneCommentsDepression Eehleuxpgq12/07/1983 Hepatitis B vaccine (1 of 3 - 19+ 3-dose series)1990DTaP/Tdap/Td vaccine (1 - Tdap)Colonoscopy2016Colorectal Cancer Screen 2016FIT/FOBT: Average risk2016Fecal-DNA (Cologuard): Average risk 2016Sigmoidoscopy/CT hihhqvthnwem89/07/2016Lung Cancer Screening &/or Xmgmjofwnd16/07/2021neumococcal 50+ years Vaccine (1 of 1 - PCV)2021 Shingles vaccine (1 of 2)1A1C test (Diabetic or Prediabetic)08/04/2023 08/04/2022, 06/09/2021Flu vaccine (#1)5COVID-19 Vaccine (3 - season)504/, 7253Uziifl98/01/650669/1Diabetes screen Zbxkuyowhhnx68/19/2023, 06/09/2021HIV screenDiscontinuedHepatitis A vaccineAged OutNo longer eligible based on patient's age to complete this topicHepatitis C screenDiscontinuedHib vaccineAged OutNo longer eligible based on patient's age to complete this topicMeningococcal (ACWY) vaccineAged OutNo longer eligible based on patient's age to complete this topicMeningococcal B vaccineAged OutNo longer eligible based on patient's age to complete this topicPolio vaccineAged OutNo longer eligible based on patient's age to complete this topic Procedures Procedure NamePriorityDate/TimeAssociated DiagnosisCommentsPOCT GLYCOSYLATED HEMOGLOBIN (HGB A1C)Cxodith4708/04/2022 7:54 AM EST Insulin resistance LIPID RJPMLYyonujx90/01/2021 11:16 AM EST Screening for hyperlipidemia from Last 3 Months or Most Recently Relevant to Health Maintenance Results * POCT glycosylated hemoglobin (Hb A1C) (08/04/2022 7:54 AM EST)ComponentValue Ref RangeTest MethodAnalysis TimePerformed AtPathologist SignatureHemoglobin A1C5.9%Specimen (Source)Anatomical Location / LateralityCollection Method / VolumeCollection TimeReceived TimeBLOOD SPECIMEN / Bhsyteo1108/04/2022 7:54 AM EST Narrative Authorizing ProviderResult TypeResult StatusParam Gimenez DOPOINT OF CARE TEST ORDERABLESFinal Result * (ABNORMAL) Lipid Panel (06/16/2021 11:16 AM EST)ComponentValueRef RangeTest MethodAnalysis TimePerformed AtPathologist XrujfpexySjxfnalsjwz277<200 mg/dL 06/16/2021 11:16 AM [facility]ATORIESComment: Cholesterol Guidelines: <200 Desirable 200-240 ??Borderline >240 Undesirable HDL32(L)>40 mg/dL06/16/2021 11:16 AM [facility]IESComment: HDL Guidelines: <40 Undesirable 40-59 ?Borderline >59 Desirable LDL Wdzknfvhtay292 - 130 mg/dL06/16/2021 11:16 AM [facility]IESComment: LDL Guidelines: <100 Desirable 100-129 ?? Near to/above Desirable 130-159 ?? Borderline >159 Undesirable Direct (measured) LDL and calculated LDL are not interchangeable tests. Chol/HDL Ratio5.5(H)<512 11:16 AM ESTM[facility]ATORIESComment: Jikzqhvarmbmw623(H)<150 mg/dL06/16/2021 11:16 AM [facility]IESComment: Triglyceride Guidelines: <150 Desirable 150-199 ??Borderline 200-499 ??High >499 Very high Based on AHA Guidelines for fasting triglyceride, April 2012. VLDLNOT REPORTED(H)1 - 30 mg/dL06/16/2021 11:16 AM ESTMERCY LABORATORIESSpecimen (Source)Anatomical Location / LateralityCollection Method / VolumeCollection TimeReceived TimeBLOOD SPECIMEN / Enmwklu3206/16/2021 11:16 AM EST06/16/2021 11:17 AM EST Narrative Authorizing ProviderResult TypeResult StatusParam Gimenez DOCHEMISTRY ORDERABLESFinal ResultPerforming OrganizationAddressCity/State/ZIP CodePhone Number [facility] [address] [place] [address], [facility] [phone] [employer] [address] [place], [place] [address] [phone] from Last 3 Months or Most Recently Relevant to Health Maintenance Insurance Care Teams Team MemberRelationshipSpecialtyStart DateEnd Date Param Gimenez DO [address] [place] [address] PCP - GeneralFamily Kbtdxgjs96/24/21
[2025-06-28 10:27] LABS: Hematocrit 44.1 % (42.0-54.0); Hemoglobin 14.2 g/dL (14.0-18.0); Mean Corpuscular HGB Conc 32.2 g/dL (29.9-35.2); Mean Corpuscular Hemoglobin 27.3 pg (25.9-34.0); Mean Corpuscular Volume 84.6 fL (80.0-94.0); Platelet Count 209 10^3/uL (150-450); Red Blood Count 5.21 10^6/uL (4.70-6.10); White Blood Count 5.8 10^3/uL (4.0-11.0)
[2025-06-28 11:04] LABS: Alanine Aminotransferase 51 U/L (16-63); Albumin Globulin Ratio 1.2; Albumin Level 3.8 g/dL (3.4-5.0); Alkaline Phosphatase 93 U/L (46-116); Anion Gap 8.9; Aspartate Amino Transferase 21 U/L (15-37); Blood Urea Nitrogen 17.0 mg/dL (7.0-18.0); Calcium 8.8 mg/dL (8.5-10.1); Carbon Dioxide 33.3 mmol/L (21.0-32.0); Chloride 102 mmol/L (98-107); Cholesterol 123 mg/dL (<=200); Estimated GFR (African America >60 (>=60 mL/min/1.73m^2); Estimated GFR (Non-African Ame >60 (>=60 mL/min/1.73m^2); Globulin 3.2 g/dL; Glucose 106 mg/dL (74-106); HDL Cholesterol 44 mg/dL (40-60); NT Pro B Type Natriuretic Pept 23.0 pg/mL (<=900.0); Potassium 4.2 mmol/L (3.5-5.1); Sodium 140 mmol/L (136-145); TSH W/ REFLEX FT4 1.022 uIU/mL (0.358-3.740); Total Protein 7.0 g/dL (6.4-8.2); Triglycerides 141 mg/dL (<=150); VLDL CHOLESTEROL 28.2 mg/dL
== END 2025-06-28 09:39 | disposition home or self-care (01) ==
LOC: LAB 09:40
PROVIDERS: PCP Family Medicine; Visit Provider Family Medicine
DX: Z00.00 Encounter for general adult medical examination without abnormal findings (principal); E78.2 Mixed hyperlipidemia; R73.03 Prediabetes; I10 Essential (primary) hypertension; Z12.5 Encounter for screening for malignant neoplasm of prostate; N52.9 Male erectile dysfunction, unspecified; R60.0 Localized edema
CPT/HCPCS: 36415; 80053; 80061; 82043; 82570; 83036; 83880; 84403; 84443; 85027; G0103